=== PATIENT | male | born 1955 | race Caucasian/White ===

== ENCOUNTER 2018-11-03 08:24 | Emergency (ER) | payer BC, MEDICARE, OTHER ==
--- NOTE | 2018-11-03 08:49 | UC ---
Throat Pain/Nasal Abdirahman HPI - HPI Summary HPI Summary: 63 year old man with disability from past concussion and left carotid dissection , with 2 week history of sinus congestion with blood streaked nasal discharge. Using daily saline spray with some relief, but in the past 2 days has increase in eye discharge without photophobia or visual blurring. Left ear with mild pain and blunted hearing. Grandchildren have had eye infections. - History of Current Complaint Stated Complaint: SINUS ISSUE EYE ISSUE Time Seen by Provider: 11/03/18 08:40 Hx Obtained From: Patient Onset/Duration: Gradual Onset, Lasting Days Severity: Moderate Cough: Nonproductive Associated Signs & Symptoms: Positive: Sinus Discomfort - Epiglottits Risk Factors Epiglottis Risk Factors: Negative - Allergies/Home Medications Allergies/Adverse Reactions: Allergies Allergy/AdvReac Type Severity Reaction Status Date / Time No Known Allergies Allergy Verified 11/03/18 08:43 Home Medications: Home Medications Levothyroxine TAB* [Synthroid TAB*] 125 mcg PO 0800 11/03/18 [History Confirmed 11/03/18] PMH/Surg Hx/FS Hx/Imm Hx Endocrine History: Hypothyroidism Neurological History: Other - history 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 - Family History Known Family History: Positive: Non-Contributory - Social History Occupation: Disabled Lives: With Family Review of Systems All Other Systems Reviewed And Are Negative: Yes Constitutional: Positive: Negative Skin: Positive: Negative Eyes: Positive: Negative ENT: Positive: Sore Throat, Ear Ache, Sinus Congestion Respiratory: Positive: Cough Cardiovascular: Positive: Negative Gastrointestinal: Positive: Negative Genitourinary: Positive: Negative Motor: Positive: Negative Neurovascular: Positive: Negative Musculoskeletal: Positive: Negative Neurological: Positive: Negative Psychological: Positive: Negative Is Patient Immunocompromised?: No Physical Exam Triage Information Reviewed: Yes Completion Of Physical Exam Limited Due To: Other - reports mild memory impairment; retrieved information on allergies by calling his and me calling his pharmacy Appearance: Ill-Appearing, Pain Distress - mild Vital Signs Reviewed: Yes Eye Exam: Other - mild left ptosis, MÓNICA without photophobia. Eyes: Positive: Conjunctiva Inflamed ENT: Positive: Pharyngeal erythema, TM dull Dental Exam: Normal Neck: Positive: Supple, Nontender, No Lymphadenopathy Respiratory: Positive: Lungs clear, Normal breath sounds Cardiovascular: Positive: RRR, No Murmur Musculoskeletal Exam: Normal Neurological: Positive: Alert Skin Exam: Other Throat Pain/Nasal Course/Dx - Course Course Of Treatment: azithromycin for right otitis/sinusitis and polytrim drops for treatment of conjunctivitis - Differential Dx/Diagnosis Differential Diagnosis/HQI/PQRI: Otitis Media, Pharyngitis, Sinusitis, URI, Other - conjunctivitis Provider Diagnosis: Bilateral conjunctivitis, Right otitis media Discharge - Sign-Out/Discharge Documenting (check all that apply): Patient Departure All imaging exams completed and their final reports reviewed: No Studies - Discharge Plan Condition: Stable Disposition: HOME Prescriptions: Azithromyxin ANTONIO (NF) [Z-Antonio (Zithromax) 250 mg tabs #6] 2 tab PO .TODAY, THEN 1 DAILY #6 tab Polymyx/Trimethoprim OPTH* [Polytrim OPHTH*] 2 drop BOTH EYES Q3H #1 btl Patient Education Materials: Conjunctivitis (ED), Ear Infection (ED) Referrals: Robby OSBORN,Xiang Hull [Primary Care Provider] - Additional Instructions: Your blood pressure today is mildly elevated; please ensure that you have re- check within a month. You have been prescribed azithromycin for treatment of right ear infection and sinus infection. Continue use of saline nose spray. Use eye drops every 3 hours to both eyes today, then 4 times daily for an additional 4 days. - Billing Disposition and Condition Condition: STABLE Disposition: Home
[2018-11-03 09:24] VITALS: BP 137/88
== END 2018-11-03 09:20 | disposition home or self-care (01) ==
LOC: UCEAST 08:24
DX: H10.9 Unspecified conjunctivitis (principal); H66.91 Otitis media, unspecified, right ear; E03.9 Hypothyroidism, unspecified; Z79.899 Other long term (current) drug therapy
CPT/HCPCS: 99212; G0463